=== PATIENT | male | born 1955 | race Caucasian/White ===

== ENCOUNTER 2017-03-25 16:18 | Emergency (ER) | payer OTHER ==
[~2017-03-25] VITALS: Ht 177.8 cm; Wt 85.0 kg
[~2017-03-25 16:18] MED LIST: ASPI325T24 PO; ESOM1CAP16 PO; LIPI80TA16 PO; PROS5TAB2 PO; TAMS0.4C67 PO; TOPR100T15 PO
[2017-03-25 16:33] VITALS: BP 127/74; PULSE 72; RESP 16; TEMP 98.8; O2SAT 96
[2017-03-25] MEDS ORDERED: TAMS0.4C4 PO (16:55)
[2017-03-25] MEDS ORDERED: METO100T9 PO (16:55)
[2017-03-25] MEDS ORDERED: LIPI80TA PO (16:55)
[2017-03-25] MEDS ORDERED: ASPI325T PO (16:55)
[2017-03-25] MEDS ORDERED: NEXI40CA PO (16:55)
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
[2017-03-25] MEDS ORDERED: ROBA500T PO (17:50)
== END 2017-03-25 17:56 | disposition home or self-care (01) ==
LOC: PHEFT 16:18
DX: S16.1XXA Strain of muscle, fascia and tendon at neck level, initial encounter (principal); S39.012A Strain of muscle, fascia and tendon of lower back, initial encounter; V43.52XA Car driver injured in collision with other type car in traffic accident, initial encounter; Y92.488 Other paved roadways as the place of occurrence of the external cause
CPT/HCPCS: 72125; 99284